=== PATIENT | female | born 1980 | race Caucasian/White ===

== ENCOUNTER 2018-04-02 12:25 | Inpatient (IN) ==
[2018-04-02] MEDS ORDERED: ceFAZolin 2 GM Premix Inj 2 GM/50 ML PIGGYBACK IV.SIG PRN (14:01)
[2018-04-02] MEDS ORDERED: Clindamycin 900 mg/NS Premix 900 MG/50 ML PIGGYBACK IV.SIG PRN (14:09)
[2018-04-02] MEDS ORDERED: Glycopyrrolate Inj 1 MG/5 ML Syringe IV.PUSH ONE (14:13)
[2018-04-02] MEDS ORDERED: Neostigmine Inj 5 MG/5 ML Syringe IV.PUSH ONE (14:13)
[2018-04-02] MEDS ORDERED: Metoprolol Inj 5 MG/5 ML Vial IV.PUSH ONE (14:13)
[2018-04-02] MEDS ORDERED: Succinylcholine Inj 100 MG/5 ML Syringe IV.PUSH ONE (14:13)
[2018-04-02] MEDS ORDERED: Citric Acid/Sodium Citrate Liq 30 ML UDC PO SCH (14:15)
[2018-04-02 14:22] LABS: Baso # (Auto) 0.1 th/mm3 (0.0-0.2); Baso % (Auto) 0.7 % (0.0-2.0); Eos # (Auto) 0.2 th/mm3 (0.0-0.4); Eos % (Auto) 1.4 % (0.0-4.0); Hematocrit 30.3 % (35.0-46.0); Hemoglobin 10.9 gm/dL (11.6-15.3); Lymph # (Auto) 1.2 th/mm3 (1.0-4.8); Lymph % (Auto) 9.3 % (9.0-44.0); Mean Corpuscular Hemoglobin 31.9 pg (27.0-34.0); Mean Corpuscular Volume 88.4 fL (80.0-100.0); Mean Platelet Volume 7.3 fL (7.0-11.0); Mono % (Auto) 7.8 % (0.0-8.0); Neut # (Auto) 10.6 th/mm3 (1.8-7.7); Neut % (Auto) 80.8 % (16.0-70.0); Platelet Count 217 th/mm3 (150-450); Red Blood Count 3.43 mil/mm3 (4.00-5.30); Red Cell Distribution Width 13.3 % (11.6-17.2); White Blood Count 13.1 th/mm3 (4.0-11.0)
[2018-04-02] MEDS ORDERED: Clindamycin Inj 600 MG/4 ML Vial ONE (14:27)
[2018-04-02 14:30] LABS: Mean Corpuscular HGB Conc 36.1 % (32.0-36.0)
[2018-04-02 14:58] LABS: Eosinophils 1 % (0-4); Lymphocytes 4 % (9-44); Monocytes 7 % (0-8); Platelet Estimate Normal (Normal); Platelet Morphology Normal (Normal)
[2018-04-02 15:06] LABS: Cord Arterial Blood HCO3 27.6
[2018-04-02] MEDS ORDERED: Propofol 1000 mg/100 ml Inj 1,000 MG/100 ML BOTTLE ONE (15:20)
[2018-04-02] MEDS ORDERED: Oxytocin 30 Units/500ml Premix 30 UNITS/500 ML BAG IV.CONT PRN (15:22)
[2018-04-02] MEDS ORDERED: Naloxone Inj 0.4 MG/ML Vial IV.PUSH PRN (15:22)
[2018-04-02] MEDS ORDERED: Benzocaine 20% Top Spray 60 ML Can TOPICAL PRN (15:22)
[2018-04-02] MEDS ORDERED: Bisacodyl 10 MG Supp RECTAL PRN (15:22)
[2018-04-02] MEDS ORDERED: Witch Hazel 50%/Glyderin 12.5% 40 Pad Jar RECTAL PRN (15:22)
[2018-04-02] MEDS ORDERED: Acetaminophen 325 MG Tablet PO PRN (15:22)
[2018-04-02 15:30] LABS: Bacteria,Urine Few /hpf; Bilirubin,Urine Negative (Negative); Color,Urine Yellow (Yellw/Straw); Glucose,Urine (UA) Negative (Negative); Leukocyte Esterase,Urine Moderate (Negative); Mucus,Urine Few /lpf (Occasional); Nitrite,Urine Negative (Negative); Specific Gravity,Urine 1.006 (1.002-1.035); Squamous Epithelial Cell,Urine 2 /hpf (0-5)
[2018-04-02 15:31] LABS: Clarity,Urine Slight (Clear)
[2018-04-02 15:36] LABS: Benzodiazepine Urine With Conf Neg (Neg); Cocaine Urine With Conf Neg (Neg); Opiates Urine With Conf Neg (Neg)
[2018-04-02] MEDS ORDERED: Morphine Sulfate Inj 8 MG/ML Vial ONE (15:36)
[2018-04-02] MEDS ORDERED: Sugammadex Inj 200 MG/2 ML Vial IV.PUSH ONE ×2 (15:37→16:45)
[2018-04-02 15:55] LABS: Amphetamine Urine With Conf Pos (Neg); Cannabinoid Urine With Conf Pos (Neg)
[2018-04-02] MEDS ORDERED: Measles/Mumps/Rubella Vaccine Inj 0.5 ML Vial SQ ONE (16:00)
[2018-04-02] MEDS ORDERED: Diphtheria/Tetanus/Pertussis Vaccine Inj 0.5 ML Syringe IM ONE (16:00)
[2018-04-02] MEDS ORDERED: *morphine SULFATE 10 MG/ML PERIprocedure ONLY ONE (16:05)
--- NOTE | 2018-04-02 16:09 | P.HPOB ---
This is a 38-year-old at 33 weeks who presents from her doctor's office for spontaneous rupture of membranes in the office. Patient is known to me from previous triage encounters. She has had a history of vaginal deliveries as well as spontaneous miscarriages. At this time she is not providing a history she appears to be intoxicated with some sort of drug. She does admit to use of amphetamine previous history of cocaine and use of marijuana recently. Were also informed that she was positive for gonorrhea which was never adequately treated. [facility] Encounter in the triage area patient appears to be in severe distress complaining of severe abdominal pain denies any vaginal bleeding attributes her rupture of membranes to pelvic exam by her primary doctor of naprapathy. She is answering some of the questions are posed. While in the OB ED there is also noted that her abdomen is tense the heart rate was 150s initially now 190s. Abruption is highly suspected patient counseled for stat . The nurse was able to obtain an IV access with the patient displaced subsequently will be placed in the OR by anesthesia.
--- NOTE | 2018-04-02 16:11 | XR ---
EXAM DATE: 04/02/2018 4:04 PM EST AGE/SEX: 38 years / Female INDICATIONS: Central line placement. CLINICAL DATA: This is the patient's initial encounter. Patient reports that signs and symptoms have been present for 1 day and indicates a pain score of 0/10. MEDICAL/SURGICAL HISTORY: None. None. COMPARISON: [facility], RIBS LEFT(W PA CXR MIN 3VWS), 12/30/2016. . FINDINGS: Right neck central line descends into SVC. There is no evidence of pneumothorax or other cavitation p lacement. The lungs are focally clear. No pleural effusion noted. Cardiac contours are satisfactory. CONCLUSION: Satisfactory Central line positioning. No pneumothorax Electronically signed by: Omar Erickson MD 04/02/2018 4:09 PM EST
--- NOTE | 2018-04-02 16:18 | P.OP ---
- Preoperative Diagnosis (1) Placental abruption in third trimester (2) 33 weeks gestation of - Postoperative Diagnosis (1) Placental abruption in third trimester (2) 33 weeks gestation of Date of procedure: 04/02/18 Procedure: Low uterine transverse section Anesthesia: MARLENE Surgeon: Mattie Renteria MD Meat Clerk: Alice Hnasen Estimated blood loss (mL): 500 Operation and Findings: This was a stat delivery. Patient was seen in triage very tense abdomen placental abruption strongly suspected. Patient was counseled about potential complications patient provided verbal consent to proceed RN present in patient's senior case manager present when patient consent. Attempt to place peripheral access was unsuccessful patient had displaced the line . Note when patient had come into triage she was not answering all questions have known the patient from previous triage visit the heart rate had initially been 150 and then subsequently 190 with a tense abdomen .patient was subsequently taken to the OR and a central line was placed by anesthesia patient was also placed under general endotracheal intubation. A Pfannenstiel skin incision was made through the skin and carried down to the underlying layer of fascia with a scalpel the fascia was nicked in the midline and subsequently the remainder of the delivery was via a [place] Sol[place] technique. After the fascia was dissected in the midline with the scalpel subsequent extended laterally digitally rectus muscle the a transverse incision was made in the lower uterine uterine segment with care to avoid the bladder. Subsequent delivery of the vertex amniotomy clear fluid. A viable female Apgars 1 and 8 delivered weight 1.96 kg. Delayed cord clamping please note absence of Sami' s jelly and very minimal blood noted in the cord. The placenta was noted to be transected close to the umbilical cord with a large rent approximately 7 cm consistent with abruption note through and through the maternal as well as surface photograph was also taken. Unable to collect the cord blood secondary to minimal blood in the cord. The uterus was exteriorized cleared of all clot and debris uterine incision was subsequently closed with 1 chromic in a running locked fashion followed by second indicating Lamberts suture. The incision was noted to be hemostatic note the posterior aspect of the uterus was evaluated in the cul-de-sac free of any disease both adnexa appear to be within normal. The uterus was subsequently repositioned the pelvic abdominal cavity the uterine incision was once again reevaluated noted to have excellent hemostasis. Please note uterus was placed back into the abdominal cavity after the paracolic gutters were cleared of all clot and debris. Identification of the fascia which was closed with 1 chromic in a running fashion. Irrigation subcutaneous tissue was noted to be hemostatic. Closure of the skin with Monocryl on a King needle in it's entirety. Patient tolerated procedure well baby taken to NICU. Patient was taken to the PACU upstairs for monitoring subsequently received report central line was removed and peripheral access was subsequently obtained patient to be transferred to the floor.
[2018-04-02] MEDS ORDERED: Propofol 1000 mg/100 ml Inj 1,000 MG/100 ML BOTTLE IV.CONT PRN (16:28)
[2018-04-02] MEDS ORDERED: Morphine Sulfate Inj 8 MG/ML Vial IV.PUSH ONE (16:45)
[2018-04-02] MEDS ORDERED: Oxytocin 30 Units/500ml Premix 30 UNITS/500 ML BAG IV.SIG ONE (18:02)
[2018-04-02] MEDS ORDERED: Simethicone 80 MG Chew Tablet PO PRN (18:02)
[2018-04-02] MEDS ORDERED: Zolpidem Tartrate 5 MG Tablet PO PRN (21:00)
[2018-04-02] MEDS: Senna/Docusate Sodium 8.6/50 MG Tablet PO SCH (21:45)
[2018-04-02] MEDS: Azithromycin Inj 500 MG in Sodium Chlor 0.9% Inj 250 ML IV.SIG SCH (21:45)
[2018-04-02] MEDS ORDERED: Clindamycin 900 mg/NS Premix 900 MG/50 ML PIGGYBACK IV.SIG SCH ×2 (22:00→22:30)
[2018-04-02] MEDS ORDERED: Gentamicin/NS 80 mg Premix 100 ML IV.SIG SCH (22:30)
[2018-04-02] MEDS ORDERED: Oxytocin 30 Units/500ml Premix 30 UNITS/500 ML BAG IV.SIG PRN (23:02)
--- NOTE | 2018-04-03 08:16 | P.PNOB ---
Subjective Interval history: 38 year old female s/p stat for placental abruption at 33 wks gestation, POD 1 . AFVSS. Patient reports she is feeling well. Bleeding is decreasing and pain is well-controlled. Baby is in NICU. Ambulating without difficulties. She is tolerating a diet without nausea or vomiting. She has not had a bowel movement. She has not passed gas. Denies chest pain, dysuria, shortness of breath, or calf pain. Objective Vital Signs/I&O: Vital Signs 04/02/18 13:36 04/02/18 13:39 04/02/18 15:15 Temperature 98.0 F 97.9 F Pulse Rate 116 H 93 H Respiratory Rate 20 24 Blood Pressure 125/92 H 121/80 Pulse Oximetry 100 04/02/18 15:25 04/02/18 15:30 04/02/18 15:42 Temperature Pulse Rate 103 H Respiratory Rate 12 18 Blood Pressure 137/77 Pulse Oximetry 98 100 100 04/02/18 15:45 04/02/18 16:00 04/02/18 16:15 Temperature Pulse Rate 97 H 88 88 Respiratory Rate 24 24 17 Blood Pressure 136/78 125/58 L 122/64 Pulse Oximetry 100 100 99 04/02/18 16:30 04/02/18 16:45 04/02/18 17:00 Temperature 97.8 F Pulse Rate 93 H 91 H 92 H Respiratory Rate 18 20 15 Blood Pressure 137/73 131/75 160/88 H Pulse Oximetry 99 98 100 04/02/18 17:30 04/02/18 18:19 04/02/18 20:00 Temperature 100.1 F H 98.7 F Pulse Rate 92 H 97 H 110 H Respiratory Rate 20 18 20 Blood Pressure 132/81 112/72 120/77 Pulse Oximetry 100 04/03/18 00:00 04/03/18 03:00 Temperature 98.6 F 98.3 F Pulse Rate 106 H 101 H Respiratory Rate 16 18 Blood Pressure 105/73 122/67 Pulse Oximetry Intake & Output 04/02/18 04/03/18 04/03/18 18:59 06:59 18:59 Weight 55 kg Other: Weight On Admission 55 kg Result Diagrams: 04/03/18 08:12 Objective Remarks: GENERAL: Well-nourished, well-developed patient. CARDIOVASCULAR: Regular rate and rhythm without murmurs, gallops, or rubs. RESPIRATORY: Breath sounds equal bilaterally. No accessory muscle use. ABDOMEN/GI: Abdomen soft, non-tender, bowel sounds present. Incision: Covered in bandage Fundus: Firm, non-tender at umbilicus. GENITOURINARY: Light to moderate bleeding. EXTREMITIES: No cyanosis or edema, non-tender, without signs of DVT. Medications and IVs: Active Medications Acetaminophen (Tylenol) 650 mg PO Q4H PRN PRN Reason: PAIN SCALE 1 TO 2 Al Hydroxide/Mg Hydroxide (Milk Of Magnpapo Liq) 30 ml PO Q12H PRN PRN Reason: Mild Constipation Benzocaine (Americaine 20% Top [place]) 1 spray TOPICAL Q4H PRN PRN Reason: For Perineum Discomfort Bisacodyl (Dulcolax Supp) 10 mg RECTAL DAILY PRN PRN Reason: SEVERE CONSITIPATION Diphenhydramine HCl (Benadryl) 50 mg PO Q4H [facility] Last Admin: 04/03/18 05:59 Dose: 50 mg Diphtheria/Pertussis/Tetanus Vacc (Boostrix Vaccine Inj) 0.5 ml IM .ONCE ONE Stop: 04/03/18 16:01 Oxytocin (Pitocin 30 Units/Ns 500 Ml Premix) 30 units in 500 mls @ 100 mls/hr IV.CONT UNSCH PRN PRN Reason: Heavy bleeding Last Admin: 04/02/18 19:15 Dose: 100 mls/hr Azithromycin 500 mg/ Sodium (Chloride) 250 mls @ 250 mls/hr IV.SIG Q12HR DON[facility] Stop: 04/04/18 09:59 Last Admin: 04/02/18 21:45 Dose: 250 mls/hr Lactated Ringer's (Lr 1000 Ml Inj) 1,000 mls @ 100 mls/hr IV.CONT .Q10H DONNA Stop: 04/03/18 19:01 Last Admin: 04/03/18 04:32 Dose: 100 mls/hr Oxytocin (Pitocin 30 Units/Ns 500 Ml Premix) 30 units in 500 mls @ 100 mls/hr IV.SIG UNSCH PRN PRN Reason: Heavy bleeding Gentamicin Sulfate/Sodium Chloride (Gentamicin/Ns 80 Mg Premix) 100 mls @ 200 mls/hr IV.SIG Q8H DON[facility] Stop: 04/03/18 16:29 Ibuprofen (Motrin) 800 mg PO Q8H PRN PRN Reason: cramping Ketorolac Tromethamine (Toradol Inj) 30 mg IM Q6H PRN PRN Reason: SEE LABEL COMMENTS Stop: 04/03/18 18:01 Last Admin: 04/02/18 20:22 Dose: 30 mg Lactulose (Lactulose Liq) 30 ml PO DAILY PRN PRN Reason: SEVERE CONSITIPATION Lorazepam (Ativan Inj) 1 mg IV.PUSH Q6H PRN PRN Reason: AGITATION Measles/Mumps/Rubella Vaccine Live (M-M-R Ii Vaccine Inj) 0.5 ml SQ .ONCE ONE Stop: 04/03/18 16:01 Miscellaneous Information ([facility]) 0 each OTHER UNSCH PRN PRN Reason: SEE LABEL COMMENTS Stop: 04/03/18 15:19 Naloxone HCl (Narcan Inj) 0.1 mg IV.PUSH Q2M PRN PRN Reason: for opiate reversal Ondansetron HCl (Zofran Odt) 4 mg PO Q6H PRN PRN Reason: NAUSEA OR VOMITING Oxycodone/Acetaminophen (Percocet 5/325 Mg) 1 tab PO Q4H PRN PRN Reason: PAIN SCALE 3 TO 5 Oxycodone/Acetaminophen (Percocet 5/325 Mg) 2 tab PO Q4H PRN PRN Reason: PAIN SCALE 6 TO 10 Last Admin: 04/03/18 05:58 Dose: 2 tab Senna/Docusate Sodium (Jess-Colace) 1 tab PO BID [facility] Last Admin: 04/02/18 21:45 Dose: 1 tab Sennosides (Senokot) 17.2 mg PO Q12H PRN PRN Reason: Moderate Constipation Simethicone (Mylicon Chew) 80 mg PO QID PRN PRN Reason: FLATULENCE Sodium Chloride (Ns Flush) 2 ml IV.FLUSH BID [facility] Last Admin: 04/02/18 21:45 Dose: 2 ml Sodium Chloride (Ns Flush) 2 ml IV.FLUSH PRN PRN PRN Reason: FLUSH AFTER USING IV ACCESS Last Admin: 04/03/18 00:01 Dose: 2 ml Witch Yuki/Glycerin (Tucks Pads) 1 applicatio RECTAL QID PRN PRN Reason: HEMORRHOIDS Zolpidem Tartrate (Ambien) 5 mg PO HS PRN PRN Reason: INSOMNIA Assessment and Plan - Diagnosis (1) Status post Code(s): Z98.891 - History of uterine scar from previous surgery Status: Acute (2) Placental abruption in third trimester Code(s): O45.93 - Premature separation of placenta, unspecified, third trimester Status: Acute - Plan 38 year old female with history of substance abuse s/p stat for placental abruption at 33 wks gestation, POD 1 -Patient positive for amphetamine and cannabinoids on UDS, Benadryl 50mg PO q4h to assist with withdrawal symptoms and Ativan 1mg IV PRN for agitation - H/H decreased from 10.9/30/3 to 8.3/24.5, appropriate decrease in levels due to - Continue Gentamicin 80mg IV q8h x2 doses and Azithromycin 500mg IV q12h x 4 doses - AFVSS - Continue routine care - Motrin and Percocet PRN pain - Encourage OOB - Pelvic rest x 6 wks. Will need 1 week incision check. - Contraception: Undecided - Anticipate D/C 1-[address] Renteria
[2018-04-03 08:19] LABS: Baso % (Auto) 0.1 % (0.0-2.0); Eos % (Auto) 0.2 % (0.0-4.0); Hematocrit 24.5 % (35.0-46.0); Hemoglobin 8.3 gm/dL (11.6-15.3); Lymph # (Auto) 1.1 th/mm3 (1.0-4.8); Lymph % (Auto) 7.7 % (9.0-44.0); Mean Corpuscular HGB Conc 33.7 % (32.0-36.0); Mean Corpuscular Hemoglobin 29.9 pg (27.0-34.0); Mean Corpuscular Volume 88.6 fL (80.0-100.0); Mean Platelet Volume 7.1 fL (7.0-11.0); Mono # (Auto) 0.7 th/mm3 (0.0-0.9); Mono % (Auto) 4.5 % (0.0-8.0); Neut # (Auto) 12.7 th/mm3 (1.8-7.7); Neut % (Auto) 87.5 % (16.0-70.0); Platelet Count 206 th/mm3 (150-450); Red Blood Count 2.77 mil/mm3 (4.00-5.30); Red Cell Distribution Width 13.4 % (11.6-17.2); White Blood Count 14.6 th/mm3 (4.0-11.0)
[2018-04-03] MEDS: Senna/Docusate Sodium 8.6/50 MG Tablet PO SCH ×2 (09:17→20:28)
[2018-04-03] MEDS: Gentamicin/NS 80 mg Premix 100 ML IV.SIG SCH ×2 (09:17→16:18)
[2018-04-03] MEDS: Azithromycin Inj 500 MG in Sodium Chlor 0.9% Inj 250 ML IV.SIG SCH ×2 (10:48→22:43)
[2018-04-03] MEDS ORDERED: Measles/Mumps/Rubella Vaccine Inj 0.5 ML Vial SQ ONE (16:00)
[2018-04-03] MEDS ORDERED: Diphtheria/Tetanus/Pertussis Vaccine Inj 0.5 ML Syringe IM ONE (16:00)
--- NOTE | 2018-04-03 17:27 | P.CONID ---
History of Present Illness Service: ID Consult date: 04/03/18 Requesting Physician: Agueda Shaw Reason for Consult: HIV disease Primary Care Provider: NOT REQUIRED History of Present Illness: 38 yo female active IV drug user presented the placental abruption #@ 33 weeks and [place] emergent C section through low transverse incision she also having disuria and her UA is markedly abnormal with GNB in urine culture labs were positive for gonorrhea HIV FRANCISCO negative 2 time, HIV abtibody/AG GP24 was reactive Pt denies fever, sorethroat, rash Pt having a h/o high grade PCN allergy as a child, however she reports uneventful Keflex use on multiple occasions within last 2 years Pt is on azithromycin, gentamycin Review of Systems All other systems reviewed negative except as stated in HPI PMFSH - History History Provided By: Patient - Medical History Medical History: Medical History (Last Reviewed 04/04/18 @ 00:39 by Paula Dale MD) Bipolar 1 disorder Ganglion cyst - Family History Family History: Family History (Last Updated 04/04/18 @ 00:39 by Paula Dale MD) Other No pertinent family history - Social History I have reviewed the patient's Social History: Yes - Tobacco History Second Hand Smoke Exposure: Yes Smoking Status: Current every day smoker Tobacco Type: Cigarettes - Alcohol History How Often Do You Have a Drink Containing Alcohol: Never - Substance Use History Substance History: Past History - Travel History Recent Travel in the [place] Within the Last 8 Weeks: No Recent Travel Out of the Country Within the Last 8 Weeks: No - Immunization History Tetanus Immunization: Unsure Hx Influenza Vaccine This Season: No Medications and Allergies Active Medications: Active Medications Acetaminophen (Tylenol) 650 mg PO Q4H PRN PRN Reason: PAIN SCALE 1 TO 2 Al Hydroxide/Mg Hydroxide (Milk Of Magnesia Liq) 30 ml PO Q12H PRN PRN Reason: Mild Constipation Benzocaine (Americaine 20% Top [place]) 1 spray TOPICAL Q4H PRN PRN Reason: For Perineum Discomfort Bisacodyl (Dulcolax Supp) 10 mg RECTAL DAILY PRN PRN Reason: SEVERE CONSITIPATION Diphenhydramine HCl (Benadryl) 50 mg PO Q4H [facility] Last Admin: 04/03/18 16:43 Dose: 50 mg Oxytocin (Pitocin 30 Units/Ns 500 Ml Premix) 30 units in 500 mls @ 100 mls/hr IV.CONT UNSCH PRN PRN Reason: Heavy bleeding Last Admin: 04/02/18 19:15 Dose: 100 mls/hr Azithromycin 500 mg/ Sodium (Chloride) 250 mls @ 250 mls/hr IV.SIG Q12HR [facility] Stop: 04/04/18 09:59 Last Admin: 04/03/18 10:48 Dose: 250 mls/hr Lactated Ringer's (Lr 1000 Ml Inj) 1,000 mls @ 100 mls/hr IV.CONT .Q10H [facility] Stop: 04/03/18 19:01 Last Admin: 04/03/18 04:32 Dose: 100 mls/hr Oxytocin (Pitocin 30 Units/Ns 500 Ml Premix) 30 units in 500 mls @ 100 mls/hr IV.SIG UNSCH PRN PRN Reason: Heavy bleeding Ibuprofen (Motrin) 800 mg PO Q8H PRN PRN Reason: cramping Ketorolac Tromethamine (Toradol Inj) 30 mg IM Q6H PRN PRN Reason: SEE LABEL COMMENTS Stop: 04/03/18 18:01 Last Admin: 04/03/18 10:58 Dose: 30 mg Lactulose (Lactulose Liq) 30 ml PO DAILY PRN PRN Reason: SEVERE CONSITIPATION Lorazepam (Ativan Inj) 1 mg IV.PUSH Q6H PRN PRN Reason: AGITATION Naloxone HCl (Narcan Inj) 0.1 mg IV.PUSH Q2M PRN PRN Reason: for opiate reversal Ondansetron HCl (Zofran Odt) 4 mg PO Q6H PRN PRN Reason: NAUSEA OR VOMITING Oxycodone/Acetaminophen (Percocet 5/325 Mg) 1 tab PO Q4H PRN PRN Reason: PAIN SCALE 3 TO 5 Oxycodone/Acetaminophen (Percocet 5/325 Mg) 2 tab PO Q4H PRN PRN Reason: PAIN SCALE 6 TO 10 Last Admin: 04/03/18 16:44 Dose: 2 tab Senna/Docusate Sodium (Jess-Colace) 1 tab PO BID [facility] Last Admin: 04/03/18 09:17 Dose: 1 tab Sennosides (Senokot) 17.2 mg PO Q12H PRN PRN Reason: Moderate Constipation Simethicone (Mylicon Chew) 80 mg PO QID PRN PRN Reason: FLATULENCE Sodium Chloride (Ns Flush) 2 ml IV.FLUSH BID [facility] Last Admin: 04/03/18 11:42 Dose: Not Given Sodium Chloride (Ns Flush) 2 ml IV.FLUSH PRN PRN PRN Reason: FLUSH AFTER USING IV ACCESS Last Admin: 04/03/18 00:01 Dose: 2 ml Witch Yuki/Glycerin (Tucks Pads) 1 applicatio RECTAL QID PRN PRN Reason: HEMORRHOIDS Zolpidem Tartrate (Ambien) 5 mg PO HS PRN PRN Reason: INSOMNIA Allergies Allergy/AdvReac Type Severity Reaction Status Date / Time amoxicillin Allergy Severe Swelling Verified 03/06/17 01:06 Penicillins Allergy Severe Swelling Verified 03/06/17 01:06 Home Medications Medication Instructions Recorded Confirmed Type vitamin #49-iron-FA See Label Instructions .ROUTE 03/31/18 04/02/18 History .COMPLEX ferrous sulfate [Iron (ferrous 325 mg PO DAILY 04/02/18 04/02/18 History sulfate)] Exam Vital signs: Vital Signs 04/02/18 17:30 04/02/18 18:19 04/02/18 20:00 Temperature 100.1 F H 98.7 F Pulse Rate 92 H 97 H 110 H Respiratory Rate 20 18 20 Blood Pressure 132/81 112/72 120/77 Pulse Oximetry 100 04/03/18 00:00 04/03/18 03:00 04/03/18 08:00 Temperature 98.6 F 98.3 F 97.5 F L Pulse Rate 106 H 101 H 95 H Respiratory Rate 16 18 18 Blood Pressure 105/73 122/67 103/68 Pulse Oximetry 04/03/18 11:40 04/03/18 11:41 04/03/18 11:42 Temperature 97.5 F L Pulse Rate 104 H Respiratory Rate 18 Blood Pressure 110/71 Pulse Oximetry Intake & Output 04/02/18 04/03/18 04/03/18 18:59 06:59 18:59 Intake Total 250 / 250 100 / 100 Balance 250 / 250 100 / 100 Weight 55 kg Intake: IV 250 / 250 100 / 100 Azithromycin Inj 500 MG In NS 250 / 250 Inj 250 ML @ 250 mls/hr IV.SIG Q12HR [facility] Rx#:[id number] Gentamicin/NS 80 mg Premix 100 100 / 100 ML @ 200 mls/hr IV.SIG Q8H [facility] Rx#:[id number] Other: Weight On Admission 55 kg - Constitutional no acute distress, thin, chronically ill appearing, disheveled - Routine HEENT Exam Head: Present: normocephalic, atraumatic Eye: Present: EOMI, PERRL. Absent: conjunctival icterus ENT: Present: mucous membranes moist. Absent: dentition normal (nearly completely edentulous) - Routine Neck Exam Present: supple, full ROM. Absent: lymphadenopathy - Routine Respiratory Exam Present: CTA bilaterally. Absent: accessory muscle use, rhonchi - Routine Cardiovascular Exam Present: RRR, S1, S2. Absent: murmur, gallop - Routine Abdominal Exam Present: soft, normoactive bowel sounds, tenderness (diffuse), distended, wound (low transverse laparotomy incision with good approximation, mnimla drainage on dressing, strirry strips in place) - Routine Extremities Exam Present: edema (trace). Absent: cyanosis, clubbing - Routine Skin Exam Present: dry, lesions (scattered ), cracked. Absent: rash - Routine Neurological Exam Present: alert, oriented X3, CN II-XII intact. Absent: sensory deficit, motor deficit - Routine Psychiatric Exam Present: cooperative, depressed, anxious Results - Labs CBC & Chem 7: 04/03/18 08:12 Labs: Laboratory Results - last 24 hr 04/02/18 04/03/18 04/03/18 14:00 03:35 08:12 WBC 14.6 H RBC 2.77 L Hgb 8.3 L D Hct 24.5 L MCV 88.6 MCH 29.9 MCHC 33.7 RDW 13.4 Plt Count 206 MPV 7.1 Neut % (Auto) 87.5 H Lymph % (Auto) 7.7 L [place] % (Auto) 4.5 Eos % (Auto) 0.2 Baso % (Auto) 0.1 Neut # (Auto) 12.7 H Lymph # (Auto) 1.1 [place] # (Auto) 0.7 Eos # (Auto) 0.0 Baso # (Auto) 0.0 WBC Differential . Differential Comment Auto diff final Urine Color Yellow Urine Clarity Slight H Urine pH 7.0 Ur Specific [place] 1.006 Urine Protein Negative Urine Glucose (UA) Negative Urine Ketones Negative Urine Occult Blood Small H Urine Nitrate Negative Urine Bilirubin Negative Urine Urobilinogen Less than 2 Ur Leukocyte Esterase Moderate H Urine RBC 2 Urine WBC 86 H Ur Squamous Epith Cells 2 Urine Bacteria Few H Urine Mucus Few H Micro UA Comment Culture indicated Urine Culture Comments Culture indicated Nasal Screen MRSA (PCR) Positive Staph aureus (PCR) Positive Assessment and Plan - Plan HIV infection, early - + Ab/AG test in a high risk pt Pt thinks she was exposed to GC about 2 weeks ago That makes sense abena FRANCISCO was negative whicle combination test with antibody/ AG that can sow much earlier infections is positive Gonorrhea UTI, GNB HIgh grade PCN allergy w/o h/o reaction to cephalosporines HIV PCR for viral load - ordered CD4 Pt needs to f/u with HIV provider as o/p within 1-2 weeks aAafter d/c CFTX can be used to treat pt' s GC and UTI kelsi RN kelsi Shaw
[2018-04-03] MEDS: Zolpidem Tartrate 5 MG Tablet PO PRN (22:42)
--- NOTE | 2018-04-04 07:39 | P.PNOB ---
Subjective Interval history: 38 year old female s/p stat for placental abruption at 33 wks gestation, POD 2 . AFVSS. Patient reports she is feeling well. Bleeding is decreasing and pain is well-controlled. Baby is in NICU. Ambulating without difficulties. She is tolerating a diet without nausea or vomiting. She has not had a bowel movement. She has passed gas. Denies chest pain, dysuria, shortness of breath, or calf pain. Objective Vital Signs/I&O: Vital Signs 04/03/18 08:00 04/03/18 11:40 04/03/18 11:41 Temperature 97.5 F L Pulse Rate 95 H 104 H Respiratory Rate 18 Blood Pressure 103/68 110/71 04/03/18 11:42 04/03/18 20:00 Temperature 97.5 F L 98.3 F Pulse Rate 105 H Respiratory Rate 18 18 Blood Pressure 126/80 Intake & Output 04/03/18 04/04/18 04/04/18 18:59 06:59 18:59 Intake Total 350 / 350 Balance 350 / 350 Intake: IV 350 / 350 Azithromycin Inj 500 MG In NS 250 / 250 Inj 250 ML @ 250 mls/hr IV.SIG Q12HR [facility] Rx#:[id number] Gentamicin/NS 80 mg Premix 100 100 / 100 ML @ 200 mls/hr IV.SIG Q8H [facility] Rx#:[id number] Result Diagrams: 04/03/18 08:12 Objective Remarks: GENERAL: Well-nourished, well-developed patient. CARDIOVASCULAR: Regular rate and rhythm without murmurs, gallops, or rubs. RESPIRATORY: Breath sounds equal bilaterally. No accessory muscle use. ABDOMEN/GI: Abdomen soft, non-tender, bowel sounds present. Incision: Clean, dry and intact. Fundus: Firm, non-tender at umbilicus. GENITOURINARY: Light to moderate bleeding. EXTREMITIES: No cyanosis or edema, non-tender, without signs of DVT. Medications and IVs: Active Medications Acetaminophen (Tylenol) 650 mg PO Q4H PRN PRN Reason: PAIN SCALE 1 TO 2 Al Hydroxide/Mg Hydroxide (Milk Of Magnesia Liq) 30 ml PO Q12H PRN PRN Reason: Mild Constipation Benzocaine (Americaine 20% Top [place]) 1 spray TOPICAL Q4H PRN PRN Reason: For Perineum Discomfort Bisacodyl (Dulcolax Supp) 10 mg RECTAL DAILY PRN PRN Reason: SEVERE CONSITIPATION Diphenhydramine HCl (Benadryl) 50 mg PO Q4H [facility] Last Admin: 04/04/18 05:43 Dose: 50 mg Oxytocin (Pitocin 30 Units/Ns 500 Ml Premix) 30 units in 500 mls @ 100 mls/hr IV.CONT UNSCH PRN PRN Reason: Heavy bleeding Last Admin: 04/02/18 19:15 Dose: 100 mls/hr Azithromycin 500 mg/ Sodium (Chloride) 250 mls @ 250 mls/hr IV.SIG Q12HR [facility] Stop: 04/04/18 09:59 Last Admin: 04/03/18 22:43 Dose: 250 mls/hr Oxytocin (Pitocin 30 Units/Ns 500 Ml Premix) 30 units in 500 mls @ 100 mls/hr IV.SIG UNSCH PRN PRN Reason: Heavy bleeding Ceftriaxone Sodium 1,000 mg/ (Sodium Chloride) 100 mls @ 200 mls/hr IV.SIG Q24H [facility] Ibuprofen (Motrin) 800 mg PO Q8H PRN PRN Reason: cramping Last Admin: 04/04/18 02:07 Dose: 800 mg Lactulose (Lactulose Liq) 30 ml PO DAILY PRN PRN Reason: SEVERE CONSITIPATION Lorazepam (Ativan Inj) 1 mg IV.PUSH Q6H PRN PRN Reason: AGITATION Naloxone HCl (Narcan Inj) 0.1 mg IV.PUSH Q2M PRN PRN Reason: for opiate reversal Ondansetron HCl (Zofran Odt) 4 mg PO Q6H PRN PRN Reason: NAUSEA OR VOMITING Oxycodone/Acetaminophen (Percocet 5/325 Mg) 1 tab PO Q4H PRN PRN Reason: PAIN SCALE 3 TO 5 Oxycodone/Acetaminophen (Percocet 5/325 Mg) 2 tab PO Q4H PRN PRN Reason: PAIN SCALE 6 TO 10 Last Admin: 04/04/18 06:22 Dose: 2 tab Senna/Docusate Sodium (Jess-Colace) 1 tab PO BID [facility] Last Admin: 04/03/18 20:28 Dose: 1 tab Sennosides (Senokot) 17.2 mg PO Q12H PRN PRN Reason: Moderate Constipation Simethicone (Mylicon Chew) 80 mg PO QID PRN PRN Reason: FLATULENCE Sodium Chloride (Ns Flush) 2 ml IV.FLUSH BID [facility] Last Admin: 04/03/18 23:53 Dose: Not Given Sodium Chloride (Ns Flush) 2 ml IV.FLUSH PRN PRN PRN Reason: FLUSH AFTER USING IV ACCESS Last Admin: 04/03/18 00:01 Dose: 2 ml [place]uki/Glycerin (Tucks Pads) 1 applicatio RECTAL QID PRN PRN Reason: HEMORRHOIDS Zolpidem Tartrate (Ambien) 5 mg PO HS PRN PRN Reason: INSOMNIA Last Admin: 04/03/18 22:42 Dose: 5 mg Assessment and Plan - Diagnosis (1) Status post Code(s): Z98.891 - History of uterine scar from previous surgery Status: Acute (2) Placental abruption in third trimester Code(s): O45.93 - Premature separation of placenta, unspecified, third trimester Status: Acute (3) Hepatitis C Code(s): B19.20 - Unspecified viral hepatitis C without hepatic coma Status: Acute (4) HIV (human immunodeficiency virus infection) Code(s): B20 - Human immunodeficiency virus [HIV] disease Status: Acute - Plan 38 year old female with history of substance abuse s/p stat for placental abruption at 33 wks gestation, POD 2 1. HIV + -ID on board -+ Ab/Ag test in a high risk pt -HIV PCR viral load and CD4+ pending -Pt will need f/u with HIV providers as outpatient in 1-2 weeks after d/c -Case management consulted 2. UTI -urine culture positive for gram negative rods, awaiting sensitivities -Start Rocephin 1g q24h 3. GC/chlamydia -patient positive for Gonorrhea -Discontinue Gentamicin -Start Rocephin 1g IV 24h -Azithromycin x 4 doses 4. Substance abuse Patient positive for amphetamine and cannabinoids on UDS, Benadryl 50mg PO q4h to assist with withdrawal symptoms and Ativan 1mg IV PRN for agitation 5. care - AFVSS - Continue routine care - Motrin and Percocet PRN pain - Encourage OOB - Pelvic rest x 6 wks. Will need 1 week incision check. - Contraception: Undecided - Anticipate D/C 1-[address] Renteria
[2018-04-04] MEDS: Azithromycin Inj 500 MG in Sodium Chlor 0.9% Inj 250 ML IV.SIG SCH (08:28)
[2018-04-04] MEDS: Senna/Docusate Sodium 8.6/50 MG Tablet PO SCH (08:29)
[2018-04-04] MEDS ORDERED: Fluconazole 100 MG Tablet PO ONE (18:23)
[2018-04-05] MEDS: Senna/Docusate Sodium 8.6/50 MG Tablet PO SCH ×2 (00:15→09:10)
[2018-04-05] MEDS: Zolpidem Tartrate 5 MG Tablet PO PRN (00:15)
--- NOTE | 2018-04-05 08:05 | P.PNOB ---
Subjective Interval history: 38 year old female s/p stat for placental abruption at 33 wks gestation, POD 3 . AFVSS. Patient reports she is feeling well. Bleeding is decreasing and pain is well-controlled. Baby is in NICU. Ambulating without difficulties. She is tolerating a diet without nausea or vomiting. She has not had a bowel movement. She has passed gas. Denies chest pain, dysuria, shortness of breath, or calf pain. Objective Vital Signs/I&O: Vital Signs 04/04/18 10:05 04/04/18 10:39 04/04/18 15:46 Temperature 97.6 F 97.5 F L 98 F Pulse Rate 106 H 95 H 106 H Respiratory Rate 18 16 20 Blood Pressure 113/72 110/73 130/80 Pulse Oximetry 97 04/04/18 20:05 Temperature 98.1 F Pulse Rate 91 H Respiratory Rate 18 Blood Pressure 110/76 Pulse Oximetry Result Diagrams: 04/03/18 08:12 Objective Remarks: GENERAL: Well-nourished, well-developed patient. CARDIOVASCULAR: Regular rate and rhythm without murmurs, gallops, or rubs. RESPIRATORY: Breath sounds equal bilaterally. No accessory muscle use. ABDOMEN/GI: Abdomen soft, non-tender, bowel sounds present. Incision: Clean, dry and intact. Fundus: Firm, non-tender at umbilicus. GENITOURINARY: Light to moderate bleeding. EXTREMITIES: No cyanosis or edema, non-tender, without signs of DVT. Medications and IVs: Active Medications Acetaminophen (Tylenol) 650 mg PO Q4H PRN PRN Reason: PAIN SCALE 1 TO 2 Al Hydroxide/Mg Hydroxide (Milk Of Magnpapo Liq) 30 ml PO Q12H PRN PRN Reason: Mild Constipation Benzocaine (Americaine 20% Top [place]) 1 spray TOPICAL Q4H PRN PRN Reason: For Perineum Discomfort Bisacodyl (Dulcolax Supp) 10 mg RECTAL DAILY PRN PRN Reason: SEVERE CONSITIPATION Diphenhydramine HCl (Benadryl) 50 mg PO Q4H [facility] Last Admin: 04/05/18 07:05 Dose: 50 mg Oxytocin (Pitocin 30 Units/Ns 500 Ml Premix) 30 units in 500 mls @ 100 mls/hr IV.CONT UNSCH PRN PRN Reason: Heavy bleeding Last Admin: 04/02/18 19:15 Dose: 100 mls/hr Oxytocin (Pitocin 30 Units/Ns 500 Ml Premix) 30 units in 500 mls @ 100 mls/hr IV.SIG UNSCH PRN PRN Reason: Heavy bleeding Ceftriaxone Sodium 1,000 mg/ (Sodium Chloride) 100 mls @ 200 mls/hr IV.SIG Q24H [facility] Last Admin: 04/04/18 09:31 Dose: 200 mls/hr Ibuprofen (Motrin) 800 mg PO Q8H PRN PRN Reason: cramping Last Admin: 04/05/18 00:16 Dose: 800 mg Lactulose (Lactulose Liq) 30 ml PO DAILY PRN PRN Reason: SEVERE CONSITIPATION Lorazepam (Ativan Inj) 1 mg IV.PUSH Q6H PRN PRN Reason: AGITATION Naloxone HCl (Narcan Inj) 0.1 mg IV.PUSH Q2M PRN PRN Reason: for opiate reversal Ondansetron HCl (Zofran Odt) 4 mg PO Q6H PRN PRN Reason: NAUSEA OR VOMITING Oxycodone/Acetaminophen (Percocet 5/325 Mg) 1 tab PO Q4H PRN PRN Reason: PAIN SCALE 3 TO 5 Oxycodone/Acetaminophen (Percocet 5/325 Mg) 2 tab PO Q4H PRN PRN Reason: PAIN SCALE 6 TO 10 Last Admin: 04/05/18 04:39 Dose: 2 tab Senna/Docusate Sodium (Jess-Colace) 1 tab PO BID [facility] Last Admin: 04/05/18 00:15 Dose: 1 tab Sennosides (Senokot) 17.2 mg PO Q12H PRN PRN Reason: Moderate Constipation Simethicone (Mylicon Chew) 80 mg PO QID PRN PRN Reason: FLATULENCE Sodium Chloride (Ns Flush) 2 ml IV.FLUSH BID [facility] Last Admin: 04/05/18 00:16 Dose: Not Given Sodium Chloride (Ns Flush) 2 ml IV.FLUSH PRN PRN PRN Reason: FLUSH AFTER USING IV ACCESS Last Admin: 04/03/18 00:01 Dose: 2 ml [place]/Glycerin (Tucks Pads) 1 applicatio RECTAL QID PRN PRN Reason: HEMORRHOIDS Zolpidem Tartrate (Ambien) 5 mg PO HS PRN PRN Reason: INSOMNIA Last Admin: 04/05/18 00:15 Dose: 5 mg Assessment and Plan - Diagnosis (1) Status post Code(s): Z98.891 - History of uterine scar from previous surgery Status: Acute (2) Placental abruption in third trimester Code(s): O45.93 - Premature separation of placenta, unspecified, third trimester Status: Acute (3) Hepatitis C Code(s): B19.20 - Unspecified viral hepatitis C without hepatic coma Status: Acute (4) HIV (human immunodeficiency virus infection) Code(s): B20 - Human immunodeficiency virus [HIV] disease Status: Acute - Plan 38 year old female with history of substance abuse s/p stat for placental abruption at 33 wks gestation, POD 3 1. HIV + -ID on board -+ Ab/Ag test in a high risk pt -HIV PCR viral load and CD4+ pending -Pt will need f/u with HIV providers as outpatient in 1-2 weeks after d/c -Case management consulted 2. UTI -urine culture positive for gram negative rods, sensitive to cephalosporins and gentamicin -s/p Rocephin 1g q24h -patient will not need to be discharge on abx, has received adequate treatment in the hospital 3. GC/chlamydia -patient positive for Gonorrhea -s/p Gentamicin, Rocephin 1g IV, and Azithromycin x 4 doses 4. Substance abuse Patient positive for amphetamine and cannabinoids on UDS, Benadryl 50mg PO q4h to assist with withdrawal symptoms and Ativan 1mg IV PRN for agitation 5. care - AFVSS - Continue routine care - Motrin and Percocet PRN pain - Encourage OOB - Pelvic rest x 6 wks. Will need 1 week incision check. - Contraception: Undecided - Anticipate D/C today kelsi Renteria
--- NOTE | 2018-04-05 08:54 | P.PNOB ---
Subjective Post op day: 3 Interval history: asked to see patient regarding aftercare post discharge she would like to have a tubal ligation she may or may not have medicaid after discharge (baby will be adopted) but we can perform tubal either way, through medicaid or through Title 10. She needs to see me one week post op. her drugs of choice are psychostimulants and subutex or vivetrol are not appropriate. she has a strong psych history and would be best on a mood stabilizer. Objective Vital Signs/I&O: Vital Signs 04/04/18 10:05 04/04/18 10:39 04/04/18 15:46 Temperature 97.6 F 97.5 F L 98 F Pulse Rate 106 H 95 H 106 H Respiratory Rate 18 16 20 Blood Pressure 113/72 110/73 130/80 Pulse Oximetry 97 04/04/18 20:05 Temperature 98.1 F Pulse Rate 91 H Respiratory Rate 18 Blood Pressure 110/76 Pulse Oximetry Result Diagrams: 04/03/18 08:12 Objective Remarks: GENERAL: Well-nourished, well-developed patient. CARDIOVASCULAR: Regular rate and rhythm without murmurs, gallops, or rubs. RESPIRATORY: Breath sounds equal bilaterally. No accessory muscle use. ABDOMEN/GI: Abdomen soft, non-tender, bowel sounds present. Incision: Clean, dry and intact. Fundus: Firm, non-tender at umbilicus. GENITOURINARY: Light to moderate bleeding. EXTREMITIES: No cyanosis or edema, non-tender, without signs of DVT. Medications and IVs: Active Medications Acetaminophen (Tylenol) 650 mg PO Q4H PRN PRN Reason: PAIN SCALE 1 TO 2 Al Hydroxide/Mg Hydroxide (Milk Of Magnesia Liq) 30 ml PO Q12H PRN PRN Reason: Mild Constipation Benzocaine (Americaine 20% Top [place]) 1 spray TOPICAL Q4H PRN PRN Reason: For Perineum Discomfort Bisacodyl (Dulcolax Supp) 10 mg RECTAL DAILY PRN PRN Reason: SEVERE CONSITIPATION Diphenhydramine HCl (Benadryl) 50 mg PO Q4H [facility] Last Admin: 04/05/18 07:05 Dose: 50 mg Oxytocin (Pitocin 30 Units/Ns 500 Ml Premix) 30 units in 500 mls @ 100 mls/hr IV.CONT UNSCH PRN PRN Reason: Heavy bleeding Last Admin: 04/02/18 19:15 Dose: 100 mls/hr Oxytocin (Pitocin 30 Units/Ns 500 Ml Premix) 30 units in 500 mls @ 100 mls/hr IV.SIG UNSCH PRN PRN Reason: Heavy bleeding Ceftriaxone Sodium 1,000 mg/ (Sodium Chloride) 100 mls @ 200 mls/hr IV.SIG Q24H [facility] Last Admin: 04/04/18 09:31 Dose: 200 mls/hr Ibuprofen (Motrin) 800 mg PO Q8H PRN PRN Reason: cramping Last Admin: 04/05/18 00:16 Dose: 800 mg Lactulose (Lactulose Liq) 30 ml PO DAILY PRN PRN Reason: SEVERE CONSITIPATION Lorazepam (Ativan Inj) 1 mg IV.PUSH Q6H PRN PRN Reason: AGITATION Naloxone HCl (Narcan Inj) 0.1 mg IV.PUSH Q2M PRN PRN Reason: for opiate reversal Ondansetron HCl (Zofran Odt) 4 mg PO Q6H PRN PRN Reason: NAUSEA OR VOMITING Oxycodone/Acetaminophen (Percocet 5/325 Mg) 1 tab PO Q4H PRN PRN Reason: PAIN SCALE 3 TO 5 Oxycodone/Acetaminophen (Percocet 5/325 Mg) 2 tab PO Q4H PRN PRN Reason: PAIN SCALE 6 TO 10 Last Admin: 04/05/18 04:39 Dose: 2 tab Senna/Docusate Sodium (Jess-Colace) 1 tab PO BID [facility] Last Admin: 04/05/18 00:15 Dose: 1 tab Sennosides (Senokot) 17.2 mg PO Q12H PRN PRN Reason: Moderate Constipation Simethicone (Mylicon Chew) 80 mg PO QID PRN PRN Reason: FLATULENCE Sodium Chloride (Ns Flush) 2 ml IV.FLUSH BID [facility] Last Admin: 04/05/18 00:16 Dose: Not Given Sodium Chloride (Ns Flush) 2 ml IV.FLUSH PRN PRN PRN Reason: FLUSH AFTER USING IV ACCESS Last Admin: 04/03/18 00:01 Dose: 2 ml [place]/Glycerin (Tucks Pads) 1 applicatio RECTAL QID PRN PRN Reason: HEMORRHOIDS Zolpidem Tartrate (Ambien) 5 mg PO HS PRN PRN Reason: INSOMNIA Last Admin: 04/05/18 00:15 Dose: 5 mg Assessment and Plan - Plan 38 year old female with history of substance abuse s/p stat for placental abruption at 33 wks gestation, POD 2 1. HIV + -ID on board -+ Ab/Ag test in a high risk pt -HIV PCR viral load and CD4+ pending -Pt will need f/u with HIV providers as outpatient in 1-2 weeks after d/c -Case management consulted 2. UTI -urine culture positive for gram negative rods, awaiting sensitivities -Start Rocephin 1g q24h 3. GC/chlamydia -patient positive for Gonorrhea -Discontinue Gentamicin -Start Rocephin 1g IV 24h -Azithromycin x 4 doses 4. Substance abuse Patient positive for amphetamine and cannabinoids on UDS, Benadryl 50mg PO q4h to assist with withdrawal symptoms and Ativan 1mg IV PRN for agitation 5. care - AFVSS - Continue routine care - Motrin and Percocet PRN pain - Encourage OOB - Pelvic rest x 6 wks. Will need 1 week incision check. - Contraception: Undecided - Anticipate D/C 1-[address] Renteria
== END 2018-04-05 12:27 | disposition home or self-care (01) ==
LOC: HOBED 12:25 → H2E 14:03 → H1EA 14:10
PROVIDERS: ADMIT Obstetrics & Gynecology; ATTEND Obstetrics & Gynecology